=== PATIENT | female | born 1985 | race Hispanic/Latino ===

== ENCOUNTER 2018-04-14 11:04 | Emergency (ER) | payer SELFPAY ==
[2018-04-14] MEDS ORDERED: NACL 0.9% 1000 ML 1,000 ML IV ONE (11:55)
--- NOTE | 2018-04-14 11:57 | Emergency Department Report ---
HPI - General Chief Complaint: Overdose Time Seen by Provider: 04/14/18 11:28 - HPI HPI: Room 26 The pt is a 32 y/o F p/w a cc of AMS. Family states they found the pt unresponsive and diaphoretic on the bathroom floor. EMS was called. Pt initially states she didnt take any drugs but later admits to nursing that she took hydrocodone. Pt denies complaints currently. Family at bedside Location: Mental state Duration: [See above] Quality: [See above] Severity: [See above] Modifying factors: [see above] Context: [see above] Mode of transportation: [not driving] ED Past Medical Hx - Past Medical History Previous Medical History?: No - Surgical History Past Surgical History?: No - Family History Family history: no significant - Social History Smoking Status: Current Every Day Smoker (1ppd) Substance Use Type: None (denies illicit drug use) ED Review of Systems ROS: Stated complaint: AMS Other details as noted in HPI Constitutional: no symptoms reported Eyes: denies: eye pain ENT: denies: throat pain Respiratory: no symptoms reported Cardiovascular: denies: chest pain Endocrine: no symptoms reported Gastrointestinal: denies: abdominal pain Genitourinary: denies: dysuria Musculoskeletal: denies: back pain Neurological: other (AMS) Physical Exam - Physical Exam Vital Signs: Vital Signs 04/14/18 11:22 Temperature 97.2 F L Pulse Rate 95 H Respiratory 16 Rate Blood Pressure 97/68 O2 Sat by Pulse 95 Oximetry Physical Exam: GEN: WD female lying on stretcher sleeping not appearing to be in acute distress. Pt required sternal rub to awaken HEENT: PERRL, NCAT Neck: Trachea midline CV: rrr Lungs: BS equal bilat Abd: S/NT/ND Skin: no diaphoresis Neuro: GCS 15, nl gait ED Course Vital Signs 04/14/18 11:22 Temperature 97.2 F L Pulse Rate 95 H Respiratory 16 Rate Blood Pressure 97/68 O2 Sat by Pulse 95 Oximetry - Reevaluation(s) Reevaluation #1: 04/14/18 15:27 Patient a and O 3 Cranial nerves II through XII grossly intact, no drift ED Medical Decision Making - Lab Data Result diagrams: 04/14/18 12:09 04/14/18 12:09 Laboratory Tests 04/14/18 04/14/18 04/14/18 11:00 12:09 12:09 WBC 10.3 RBC 4.00 Hgb 12.4 Hct 37.5 MCV 94 MCH 31 MCHC 33 RDW 14.3 Plt Count 435 Lymph % (Auto) 11.0 L Hood % (Auto) 2.3 Eos % (Auto) 1.5 Baso % (Auto) 0.8 Lymph # 1.1 L Hood # 0.2 Eos # 0.2 Baso # 0.1 Seg Neutrophils % 84.4 H Seg Neutrophils # 8.7 H PT 11.6 L INR 0.81 L APTT 24.1 L Sodium Potassium Chloride Carbon Dioxide Anion Gap BUN Creatinine Estimated GFR BUN/Creatinine Ratio Glucose Calcium Total Bilirubin AST ALT Alkaline Phosphatase Ammonia Total Creatine Kinase CK-MB (CK-2) CK-MB (CK-2) Rel Index Troponin T Total Protein Albumin Albumin/Globulin Ratio TSH Free T4 HCG, Qual Urine Opiates Screen Presumptive negative Urine Methadone Screen Presumptive negative Ur Barbiturates Screen Presumptive negative Ur Phencyclidine Scrn Presumptive negative Ur Amphetamines Screen Presumptive positive U Benzodiazepines Scrn Presumptive negative Urine Cocaine Screen Presumptive negative U Marijuana (THC) Screen Presumptive negative Drugs of Abuse Note Disclamer Plasma/Serum Alcohol 04/14/18 04/14/18 04/14/18 12:09 12:09 12:09 WBC RBC Hgb Hct MCV MCH MCHC RDW Plt Count Lymph % (Auto) Hood % (Auto) Eos % (Auto) Baso % (Auto) Lymph # Hood # Eos # Baso # Seg Neutrophils % Seg Neutrophils # PT INR APTT Sodium 139 Potassium 4.2 Chloride 103.2 Carbon Dioxide 21 L Anion Gap 19 BUN 11 Creatinine 0.6 L Estimated GFR > 60 BUN/Creatinine Ratio 18 Glucose 102 H Calcium 9.1 Total Bilirubin < 0.20 AST 14 ALT 11 Alkaline Phosphatase 77 Ammonia 38.0 Total Creatine Kinase 68 CK-MB (CK-2) 1.0 CK-MB (CK-2) Rel Index 1.4 Troponin T < 0.010 Total Protein 7.4 Albumin 4.1 Albumin/Globulin Ratio 1.2 TSH Free T4 HCG, Qual Negative Urine Opiates Screen Urine Methadone Screen Ur Barbiturates Screen Ur Phencyclidine Scrn Ur Amphetamines Screen U Benzodiazepines Scrn Urine Cocaine Screen U Marijuana (THC) Screen Drugs of Abuse Note Plasma/Serum Alcohol 01/08/19 01/08/19 12:09 12:09 WBC RBC Hgb Hct MCV MCH MCHC RDW Plt Count Lymph % (Auto) Hood % (Auto) Eos % (Auto) Baso % (Auto) Lymph # Hood # Eos # Baso # Seg Neutrophils % Seg Neutrophils # PT INR APTT Sodium Potassium Chloride Carbon Dioxide Anion Gap BUN Creatinine Estimated GFR BUN/Creatinine Ratio Glucose Calcium Total Bilirubin AST ALT Alkaline Phosphatase Ammonia Total Creatine Kinase CK-MB (CK-2) CK-MB (CK-2) Rel Index Troponin T Total Protein Albumin Albumin/Globulin Ratio TSH 1.980 Free T4 1.26 HCG, Qual Urine Opiates Screen Urine Methadone Screen Ur Barbiturates Screen Ur Phencyclidine Scrn Ur Amphetamines Screen U Benzodiazepines Scrn Urine Cocaine Screen U Marijuana (THC) Screen Drugs of Abuse Note Plasma/Serum Alcohol < 0.01 - EKG Data -: EKG Interpreted by Mt EKG shows normal: sinus rhythm Rate: normal - EKG Data When compared to previous EKG there are: previous EKG unavailable Interpretation: other (no ischemic changes seen) - Radiology Data Radiology results: report reviewed (CT head), image reviewed (CT head) [address] [address] Cat Scan Report Signed Patient: NORY US MR#: [id number] : 1985 Acct:[id number] Age/Sex: 32 / F ADM Date: 04/14/18 Loc: ED Attending Dr: Ordering Physician: FRANCOIS WYNNE MD Date of Service: 04/14/18 Procedure(s): CT head/brain wo con Accession Number(s): [id number] cc: FRANCOIS WYNNE MD CT HEAD WITHOUT CONTRAST: HISTORY: Altered mental status. TECHNIQUE: Sequential 2.5mm CT images. COMPARISON: none. FINDINGS: Cerebral Parenchyma: Within normal limits. Cerebellum: Within normal limits. Brainstem: Within normal limits. Ventricles: Normal. Sella: Normal. Extra-axial spaces: Normal. Basal Cisterns: Normal. Intracranial Hemorrhage: None. Midline Shift: None. Calvarium: Normal. Sinuses: The ethmoid air cells are partially opacified. The remaining sinuses are clear. Mastoid Air Cells: Normal. Visualized Orbits: Normal. IMPRESSION: Cranial CT scan within normal limits. Mild ethmoid sinus disease. Transcribed By: TTR Dictated By: UMESH ROMO JR, MD Electronically Authenticated By: UMESH ROMO JR, MD Signed Date/Time: 04/14/181516 DD/ 16 TD/TT: 04/14/181516 - Differential Diagnosis polysubstance abuse Critical care attestation.: If time is entered above; I have spent that time in minutes in the direct care of this critically ill patient, excluding procedure time. ED Disposition Clinical Impression: Amphetamine abuse, Altered mental status Disposition: DC-01 TO HOME OR SELFCARE Is pt being admited?: No Does the pt Need Aspirin: No Condition: Stable Instructions: Methamphetamine Abuse (ED) Additional Instructions: Return to the emergency department immediately should you develop worsening symptoms, fever, inability to tolerate food or liquid or any other concerns. Referrals: [facility] [Outside] - 3-5 Days Time of Disposition: 15:27 (d/c to family)
[2018-04-14 12:32] LABS: Basophils # (Auto) 0.1 K/mm3 (0.0-0.1); Basophils % (Auto) 0.8 % (0.0-1.8); Eosinophils # (Auto) 0.2 K/mm3 (0.0-0.4); Eosinophils % (Auto) 1.5 % (0.0-4.3); Hematocrit 37.5 % (30.3-42.9); Hemoglobin 12.4 gm/dl (10.1-14.3); Lymphocytes # (Auto) 1.1 K/mm3 (1.2-5.4); Mean Corpuscular HGB Conc 33 % (30-34); Mean Corpuscular Volume 94 fl (79-97); Monocytes # (Auto) 0.2 K/mm3 (0.0-0.8); Monocytes % (Auto) 2.3 % (0.0-7.3); Platelet Count 435 K/mm3 (140-440); Red Cell Distribution Width 14.3 % (13.2-15.2)
[2018-04-14 12:41] LABS: INR 0.81 (0.87-1.13)
[2018-04-14 12:42] LABS: Partial Thromboplastin Time 24.1 Sec. (24.2-36.6)
[2018-04-14 12:55] LABS: Alanine Aminotransferase 11 units/L (7-56); Albumin 4.1 g/dL (3.9-5); BUN/Creatinine Ratio 18; Blood Urea Nitrogen 11 mg/dL (7-17); Calcium 9.1 mg/dL (8.4-10.2); Hemolysis Index 11
[2018-04-14 13:02] LABS: Free T4 (Free Thyroxine) 1.26 ng/dL (0.76-1.46)
[2018-04-14 13:09] LABS: Benzodiazepines Screen,Urine PRESUMPTIVE NEGATIVE; Cannabinoid Screen,Urine PRESUMPTIVE NEGATIVE; Cocaine Screen,Urine PRESUMPTIVE NEGATIVE; Methadone Screen,Urine PRESUMPTIVE NEGATIVE; Opiate Screen,Urine PRESUMPTIVE NEGATIVE
[2018-04-14 13:20] LABS: Amphetamine Screen,Urine PRESUMPTIVE POSITIVE
--- NOTE | 2018-04-14 15:20 | Cat Scan Report ---
CT HEAD WITHOUT CONTRAST: HISTORY: Altered mental status. TECHNIQUE: Sequential 2.5mm CT images. COMPARISON: none. FINDINGS: Cerebral Parenchyma: Within normal limits. Cerebellum: Within normal limits. Brainstem: Within normal limits. Ventricles: Normal. Sella: Normal. Extra-axial spaces: Normal. Basal Cisterns: Normal. Intracranial Hemorrhage: None. Midline Shift: None. Calvarium: Normal. Sinuses: The ethmoid air cells are partially opacified. The remaining sinuses are clear. Mastoid Air Cells: Normal. Visualized Orbits: Normal. IMPRESSION: Cranial CT scan within normal limits. Mild ethmoid sinus disease.
[2018-04-14 15:30] VITALS: BP 109/76
== END 2018-04-14 15:37 | disposition home or self-care (01) ==
LOC: ED 11:04
DX: R41.82 Altered mental status, unspecified (principal); F15.10 Other stimulant abuse, uncomplicated; F17.200 Nicotine dependence, unspecified, uncomplicated
CPT/HCPCS: 36415; 70450; 80053; 80307; 82140; 82550; 82553; 84439; 84443; 84484; 84703; 85025; 85610; 85730; 93005; 93010; 96360; 99284; G0480; J7030; 80320

== ENCOUNTER 2019-10-24 11:50 | Emergency (ER) | payer SELFPAY ==
[2019-10-24 11:58] VITALS: BP 118/76
== END 2019-10-24 13:43 | disposition left against medical advice (07) ==
LOC: ED 11:50
DX: R21 Rash and other nonspecific skin eruption (principal); Z53.21 Procedure and treatment not carried out due to patient leaving prior to being seen by health care provider